=== PATIENT | male | born 1980 | race African-American/Black ===

== ENCOUNTER 2019-05-24 07:20 | Emergency (ER) | payer OTHER ==
[~2019-05-24] VITALS: Ht 170.2 cm; Wt 84.9 kg
[2019-05-24 07:32] VITALS: Ht 170.2 cm; Wt 84.9 kg
[2019-05-24 09:18] VITALS: BP 125/75
== END 2019-05-24 09:27 | disposition home or self-care (01) ==
LOC: ED 07:20
DX: J20.9 Acute bronchitis, unspecified (principal); J02.9 Acute pharyngitis, unspecified; Z88.0 Allergy status to penicillin
CPT/HCPCS: J1100; J7613; J7644; Q0092

== ENCOUNTER 2019-05-28 10:22 | Emergency (ER) | payer OTHER ==
[~2019-05-28] VITALS: Ht 170.2 cm; Wt 85.3 kg
[2019-05-28 10:40] VITALS: BP 127/83; Ht 170.2 cm; Wt 85.3 kg
== END 2019-05-28 12:15 | disposition home or self-care (01) ==
LOC: ED 10:22
DX: J06.9 Acute upper respiratory infection, unspecified (principal); Z88.0 Allergy status to penicillin; Z88.8 Allergy status to other drugs, medicaments and biological substances
CPT/HCPCS: J7620; Q0092

== ENCOUNTER 2019-06-04 06:29 | Emergency (ER) | payer OTHER ==
[~2019-06-04] VITALS: Ht 170.2 cm; Wt 85.5 kg
[2019-06-04 06:31] VITALS: BP 117/92; Ht 170.2 cm; Wt 85.5 kg
== END 2019-06-04 07:17 | disposition home or self-care (01) ==
LOC: ED 06:29
DX: H10.89 Other conjunctivitis (principal); F17.200 Nicotine dependence, unspecified, uncomplicated; Z88.0 Allergy status to penicillin; Z88.8 Allergy status to other drugs, medicaments and biological substances